=== PATIENT | female | born 1985 | race Hispanic/Latino ===

== ENCOUNTER 2018-02-19 18:36 | Emergency (ER) | payer MEDICAID ==
[2018-02-19 19:24] LABS: APPEARANCE,URINE Clear (CLEAR); BILIRUBIN,URINE Negative (NEGATIVE); COLOR,URINE Dark Yellow (YELLOW); GLUCOSE, URINE (UA) Negative (NEGATIVE); KETONES,URINE Trace mg/dL (NEGATIVE); LEUKOCYTE ESTERASE ,URINE Negative (NEGATIVE); NITRATE,URINE Negative (NEGATIVE); OCCULT BLOOD,URINE Negative (NEGATIVE); PH,URINE 5.5 (5.0-8.0); PROTEIN,URINE Negative (NEGATIVE)
[2018-02-19 19:28] LABS: BASOPHILS % (AUTO) 0.9 % (0.0-5.0); HEMATOCRIT 37.6 % (36-48); LYMPHOCYTES % (AUTO) 25.1 % (21.0-51.0); MEAN CORPUSCULAR HEMOGLOBIN 26.6 pg (27.0-33.0); MEAN CORPUSCULAR HGB CONC 32.8 g/dL (32.0-36.0); MONOCYTES % (AUTO) 10.3 % (3.0-13.0); NEUTROPHILS % (AUTO) 61.7 % (40.0-77.0); PLATELET COUNT (AUTO) 411 K/uL (130-400); RED BLOOD CELL COUNT(AUTO) 4.64 MIL/uL (4.00-5.50); RED CELL DISTRIBUTION WIDTH 14.3 % (11.0-15.5); WHITE BLOOD COUNT (AUTO) 9.2 K/uL (4.8-10.8)
[2018-02-19 19:29] LABS: CREATININE 0.8 mg/dL (0.5-1.5); INR 0.95 (0.85-1.15); PARTIAL THROMBOPLASTIN TIME 23.1 SEC (26.3-35.5); POTASSIUM 3.7 mmol/L (3.5-5.1)
[2018-02-19 19:39] LABS: ALBUMIN 3.4 g/dL (3.5-5.0); BILIRUBIN,TOTAL 0.4 mg/dL (0.2-1.0); TOTAL PROTEIN, SERUM 7.8 g/dL (6.0-8.3)
[2018-02-19] MEDS ORDERED: KETOROLAC TROMETHAMINE 15MG/ML ONE (20:17)
== END 2018-02-19 22:32 | disposition home or self-care (01) ==
LOC: EDH 18:36
DX: R10.32 Left lower quadrant pain (principal); Z98.890 Other specified postprocedural states
CPT/HCPCS: 36415; 80053; 81003; 83690; 84702; 85025; 85610; 85730; 96374; 99284; J1885

== ENCOUNTER 2018-03-16 14:37 | Emergency (ER) | payer MEDICAID ==
[2018-03-16] MEDS ORDERED: IPRATROPIUM/ALBUTEROL SULFATE 3 ML SOLUTION IH ONE (15:20)
[2018-03-16] MEDS ORDERED: METHYLPREDNISOLONE SOD SUCC 125MG/2ML VIAL ONE (15:34)
[2018-03-16 15:41] LABS: RAPID GROUP A STREP NEGATIVE (NEGATIVE)
== END 2018-03-16 16:04 | disposition home or self-care (01) ==
LOC: EDH 14:37
DX: J20.9 Acute bronchitis, unspecified (principal)
CPT/HCPCS: 71046; 81025; 87804 ×2; 87880; 94640; 96372; 99285; J2930

== ENCOUNTER 2019-08-19 18:44 | Emergency (ER) | payer MEDICAID ==
[2019-08-19 19:00] LABS: APPEARANCE,URINE Clear (CLEAR); BILIRUBIN,URINE Negative (NEGATIVE); COLOR,URINE Yellow (YELLOW); GLUCOSE, URINE (UA) Negative (NEGATIVE); KETONES,URINE Negative (NEGATIVE); LEUKOCYTE ESTERASE ,URINE Negative (NEGATIVE); NITRATE,URINE Negative (NEGATIVE); OCCULT BLOOD,URINE Negative (NEGATIVE); PH,URINE 7.5 (5.0-8.0); PROTEIN,URINE Negative (NEGATIVE)
[2019-08-19 19:04] LABS: HCG,QUAL RESULT NEGATIVE (NEGATIVE)
[2019-08-19 19:09] LABS: AMPHET/METH SCREEN,URINE NEGATIVE (NEGATIVE); BARBITURATE SCREEN, URINE NEGATIVE (NEGATIVE); BENZODIAZEPINES SCREEN,URINE NEGATIVE (NEGATIVE); CANNABINOID SCREEN,URINE NEGATIVE (NEGATIVE); COCAINE SCREEN,URINE NEGATIVE (NEGATIVE); OPIATE SCREEN,URINE NEGATIVE (NEGATIVE); PHENCYCLIDINE SCREEN,URINE NEGATIVE (NEGATIVE)
[2019-08-19 20:37] LABS: BASOPHILS % (AUTO) 1.4 % (0.0-5.0); EOSINOPHILS % (AUTO) 1.4 % (0.0-8.0); HEMATOCRIT 32.7 % (36-48); LYMPHOCYTES % (AUTO) 23.8 % (21.0-51.0); MEAN CORPUSCULAR HEMOGLOBIN 19.7 pg (27.0-33.0); MEAN CORPUSCULAR HGB CONC 30.6 g/dL (32.0-36.0); MEAN CORPUSCULAR VOLUME 64.4 fL (79-99); MONOCYTES % (AUTO) 11.3 % (3.0-13.0); NEUTROPHILS % (AUTO) 62.1 % (40.0-77.0); PLATELET COUNT (AUTO) 462 K/uL (130-400); RED BLOOD CELL COUNT(AUTO) 5.07 MIL/uL (4.00-5.50); RED CELL DISTRIBUTION WIDTH 19.2 % (11.0-15.5); WHITE BLOOD COUNT (AUTO) 11.9 K/uL (4.8-10.8)
[2019-08-19 20:44] LABS: INR 0.96 (0.85-1.15); PARTIAL THROMBOPLASTIN TIME 23.6 SEC (26.3-35.5); PROTHROMBIN TIME 10.1 SEC (9.6-11.6)
[2019-08-19 20:48] LABS: CREATININE 0.8 mg/dL (0.5-1.5); POTASSIUM 4.2 mmol/L (3.5-5.1)
[2019-08-19 20:53] LABS: ALBUMIN 3.6 g/dL (3.5-5.0); BILIRUBIN,TOTAL 0.3 mg/dL (0.2-1.0); TOTAL PROTEIN, SERUM 7.9 g/dL (6.0-8.3)
[2019-08-19] MEDS ORDERED: SODIUM CHLORIDE 0.9% 1000ML 1,000 ML IV ONE (20:56)
[2019-08-19] MEDS ORDERED: ACETAMINOPHEN EXTRA STRENGTH 500 MG TABLET ONE (21:04)
== END 2019-08-19 22:50 | disposition home or self-care (01) ==
LOC: EDH 18:44
DX: D64.9 Anemia, unspecified (principal); D47.3 Essential (hemorrhagic) thrombocythemia; R03.0 Elevated blood-pressure reading, without diagnosis of hypertension; R53.1 Weakness; R42 Dizziness and giddiness
CPT/HCPCS: 36415; 80053; 80305; 81003; 81025; 82550; 84443; 84484; 85025; 85610; 85730; 87804 ×2; 93005; 96360; 96361; 99285; J7030

== ENCOUNTER 2019-10-18 12:31 | Emergency (ER) | payer MEDICAID | END 2019-10-18 13:33 | disposition home or self-care (01) | LOC: EDH 12:31 | DX: M54.14 Radiculopathy, thoracic region (principal); M25.511 Pain in right shoulder ==

== ENCOUNTER 2022-01-08 15:10 | Emergency (ER) | payer MEDICAID ==
[~2022-01-08] VITALS: Ht 157.5 cm; Wt 76.2 kg
[2022-01-08 16:03] LABS: APPEARANCE,URINE CLEAR (CLEAR); BILIRUBIN,URINE NEGATIVE (NEGATIVE); COLOR,URINE YELLOW (YELLOW); GLUCOSE, URINE (UA) NEGATIVE (NEGATIVE); KETONES,URINE NEGATIVE (NEGATIVE); LEUKOCYTE ESTERASE ,URINE NEGATIVE (NEGATIVE); NITRATE,URINE POSITIVE (NEGATIVE); OCCULT BLOOD,URINE NEGATIVE (NEGATIVE); PROTEIN,URINE NEGATIVE (NEGATIVE); UROBILINOGEN,URINE 0.2 mg/dL (0.2-1.0)
[2022-01-08 16:04] LABS: BASOPHILS % (AUTO) 0.4 % (0.0-5.0); EOSINOPHILS % (AUTO) 1.7 % (0.0-8.0); LYMPHOCYTES % (AUTO) 17.9 % (21.0-51.0); MEAN CORPUSCULAR HEMOGLOBIN 21.2 pg (27.0-33.0); MEAN CORPUSCULAR HGB CONC 29.1 g/dL (32.0-36.0); MEAN CORPUSCULAR VOLUME 72.8 fL (79-99); MONOCYTES % (AUTO) 8.2 % (3.0-13.0); NEUTROPHILS % (AUTO) 71.3 % (40.0-77.0); PLATELET COUNT (AUTO) 397 K/uL (130-400); RED BLOOD CELL COUNT(AUTO) 4.81 MIL/uL (4.00-5.50); RED CELL DISTRIBUTION WIDTH 18.7 % (11.0-15.5); WHITE BLOOD COUNT (AUTO) 11.1 K/uL (4.8-10.8)
[2022-01-08 16:08] LABS: HCG,QUAL RESULT NEGATIVE (NEGATIVE)
[2022-01-08 16:12] LABS: AMPHET/METH SCREEN,URINE POSITIVE (NEGATIVE); BACTERIA,URINE Moderate /HPF (None Seen); BARBITURATE SCREEN, URINE NEGATIVE (NEGATIVE); BENZODIAZEPINES SCREEN,URINE NEGATIVE (NEGATIVE); CANNABINOID SCREEN,URINE NEGATIVE (NEGATIVE); COCAINE SCREEN,URINE NEGATIVE (NEGATIVE); MUCUS,URINE Moderate LPF (None Seen); OPIATE SCREEN,URINE NEGATIVE (NEGATIVE); PHENCYCLIDINE SCREEN,URINE NEGATIVE (NEGATIVE); RBC,URINE 0-1 /HPF (0-1); WBC,URINE 0-1 /HPF (0-1)
[2022-01-08 16:16] LABS: CREATININE 0.8 mg/dL (0.5-1.5); POTASSIUM 3.6 mmol/L (3.5-5.1)
[2022-01-08 16:26] LABS: ALBUMIN 3.4 g/dL (3.5-5.0); BILIRUBIN,TOTAL 0.3 mg/dL (0.2-1.0); TOTAL PROTEIN, SERUM 7.7 g/dL (6.0-8.3)
[2022-01-08] MEDS ORDERED: 0.9%NACL 1000ML 1,000 ML IV ONE (18:30)
[2022-01-08] MEDS ORDERED: DiphenhydrAMINE HCL 50 MG/ML VIAL IV ONE (18:30)
[2022-01-08] MEDS ORDERED: KETOROLAC 30MG VIAL (30MG/ML) IM ONE (18:30)
[2022-01-08] MEDS ORDERED: PROCHLORPERAZINE EDISYLATE 5 MG/ML 2 ML VIAL IVP ONE (18:45)
[2022-01-08] MEDS ORDERED: PROCHLORPERAZINE 10MG/2ML INJ IVP ONE (18:45)
[2022-01-08 19:24] VITALS: BP 119/65
[2022-01-08] MEDS ORDERED: IBUP-2070 PO (20:01)
[2022-01-08] MEDS ORDERED: PROM25TA7 PO (20:01)
== END 2022-01-08 20:15 | disposition home or self-care (01) ==
LOC: EDH 15:10
DX: G43.109 Migraine with aura, not intractable, without status migrainosus (principal); D50.9 Iron deficiency anemia, unspecified; R11.2 Nausea with vomiting, unspecified; Z20.822 Contact with and (suspected) exposure to COVID-19
CPT/HCPCS: 36415; 70450; 71045; 80053; 80305; 81001; 81025; 82550; 84484; 85025; 87088; 87635; 93005; 96361; 96372; 96374; 96375; 99285; C9803; J0780; J1200; J1885

== ENCOUNTER 2022-12-27 15:56 | Emergency (ER) | payer BC, MEDICAID ==
[~2022-12-27] VITALS: Ht 157.5 cm; Wt 82.6 kg
[~2022-12-27 15:56] MED LIST: IBUP-2070 PO; PROM25TA7 PO
[2022-12-27 16:48] LABS: APPEARANCE,URINE CLEAR (CLEAR); BILIRUBIN,URINE NEGATIVE (NEGATIVE); COLOR,URINE LIGHT-YELLOW (YELLOW); GLUCOSE, URINE (UA) NEGATIVE (NEGATIVE); KETONES,URINE NEGATIVE (NEGATIVE); LEUKOCYTE ESTERASE ,URINE NEGATIVE Leu/uL (NEGATIVE); NITRATE,URINE NEGATIVE (NEGATIVE); OCCULT BLOOD,URINE NEGATIVE (NEGATIVE); PROTEIN,URINE NEGATIVE (NEGATIVE); UROBILINOGEN,URINE 0.2 mg/dL (0.2-1.0)
[2022-12-27 16:49] LABS: HCG,QUALITATIVE URINE NEGATIVE (NEGATIVE)
[2022-12-27 16:51] LABS: BACTERIA,URINE RARE /HPF (None Seen); MUCUS,URINE RARE LPF (None Seen); SQUAMOUS EPITHELIAL CELL,UR FEW /HPF (0-2); WBC,URINE 0-1 /HPF (0-1)
[2022-12-27 16:52] LABS: BASOPHILS % (AUTO) 0.3 % (0.0-5.0); EOSINOPHILS % (AUTO) 1.3 % (0.0-8.0); HEMATOCRIT 43.2 % (36-48); LYMPHOCYTES % (AUTO) 17.1 % (21.0-51.0); MEAN CORPUSCULAR HGB CONC 31.5 g/dL (32.0-36.0); MEAN CORPUSCULAR VOLUME 85.7 fL (79-99); NEUTROPHILS % (AUTO) 74.6 % (40.0-77.0); PLATELET COUNT (AUTO) 395 K/uL (130-400); RED BLOOD CELL COUNT(AUTO) 5.04 MIL/uL (4.00-5.50); RED CELL DISTRIBUTION WIDTH 13.2 % (11.0-15.5); WHITE BLOOD COUNT (AUTO) 15.6 K/uL (4.8-10.8)
[2022-12-27 17:16] LABS: CREATININE 0.8 mg/dL (0.5-1.5); POTASSIUM 3.5 mmol/L (3.5-5.1)
[2022-12-27 17:20] LABS: ALBUMIN 3.8 g/dL (3.5-5.0); TOTAL PROTEIN, SERUM 8.7 g/dL (6.0-8.3)
[2022-12-27] MEDS ORDERED: METO10TA3 PO (18:22)
[2022-12-27 18:30] VITALS: BP 121/71
== END 2022-12-27 18:40 | disposition home or self-care (01) ==
LOC: EDH 15:56
DX: G43.909 Migraine, unspecified, not intractable, without status migrainosus (principal); R11.0 Nausea; Z79.1 Long term (current) use of non-steroidal anti-inflammatories (NSAID)
CPT/HCPCS: 36415; 76856; 80053; 81001; 81025; 85025

== ENCOUNTER 2025-11-16 23:49 | Inpatient (IN) | payer BC, MEDICAID ==
[~2025-11-16] VITALS: Ht 157.5 cm; Wt 60.8 kg
[~2025-11-16 23:49] MED LIST changes: +IBUP-1492 PO; -IBUP-2070 PO; +METO10TA3 PO
--- NOTE | 2025-11-16 23:59 | NUR ---
UA CUP PROVIDED
[2025-11-17] MEDS: LACTATED RINGERS 1000ML 1,000 ML IV ONE (00:20)
[2025-11-17 00:44] LABS: IMMATURE GRANULOCYTE ABSOLUTE 0.07 K/uL (0-1); NUCLEATED RED BLOOD CELLS 0.0 % (0.0-0.19); PLATELET COUNT (AUTO) 347 K/uL (130-400); RED BLOOD CELL COUNT(AUTO) 4.08 MIL/uL (4.00-5.50); RED CELL DISTRIBUTION WIDTH 16.3 % (11.0-15.5); WHITE BLOOD COUNT (AUTO) 14.5 K/uL (4.8-10.8)
--- NOTE | 2025-11-17 00:47 | ERN ---
General Chief Complaint: Multiple Complaints Stated Complaint: LOW BP, HEADACHE, GBW, NOSE BLEEDS Time Seen by MD: 23:53 History of Present Illness Initial Comments 39-year-old female presents for headaches some nosebleed hand swelling or leg swelling. Patient has a history of lupus and Still's disease, rheumatoid arthritis, fibromyalgia. She reports that lately she has been having frequent nosebleeds. She has been swelling in her hands in her feet. She has been having frequent bilateral temporal headaches and occipital headaches that are: Stent. No vision changes. No focal neurologic deficits. No fevers. No cough. No chest pain. Normal urination. Allergies: Coded Allergies: No Known Allergies (Unverified Allergy, Unknown, 01/08/22) furosemide (Unverified Allergy, Unknown, 11/17/25) Home Meds Active Scripts Metoclopramide HCl (Metoclopramide HCl) 10 Mg Tablet, 10 MG PO Q6HPRN PRN for NAUSEA for 10 Days, #40 TAB Prov:DORINA RYAN 12/27/22 Promethazine HCl (Promethazine HCl) 25 Mg Tablet, 25 MG PO TID PRN for nausea, #15 TAB 0 Refills Prov:DONNY PRESCOTT MD 01/08/22 Ibuprofen (Ibuprofen) 600 Mg Tablet, 600 MG PO Q6H PRN for PAIN, #30 TAB 0 Refills Prov:DONNY PRESCOTT MD 01/08/22 Past Medical History Past Medical History: Anemia, Anxiety, Fibromyalgia, Hypotension, Migraines, Other Medical History Other: RA, LUPUS, NASAL MASS Past Surgical History: Other, Surgical History Other: HIATAL HERNIA Female( History) LMP: Nov 13, 2025 ROS Dictation CONSTITUTIONAL: Generalized weakness HEAD/FACE: No signs of trauma. EENT: Frequent nosebleeds RESPIRATORY: No cough, no orthopnea, no SOB, no stridor, no wheezing. CARDIOVASCULAR: No chest pain, no edema, no palpitations, no syncope. GASTROINTESTINAL/ABDOMINAL: Nausea and vomiting GENITOURINARY: No abnormal discharge, no dysuria, no frequent urination, no hematuria. No complaints of pain in the genitals. MUSCULOSKELETAL: Bilateral hand and leg swelling INTEGUMENTARY: No change in color, no change in hair/nails, no dryness, no lesion, no lumps, no rash. NEUROLOGICAL/PSYCH: No anxiety, not depressed, no emotional problem, no headache, no numbness, no pre-existing deficit, no history of seizures, no tremors, no weakness. HEMATOLOGIC/LYMPHATIC: Not anemic, no history of blood clots, no apparent bleeding, no bruising, glands not swollen. All Systems Negative, Except as Noted. Physical Exam Physical Exam Dictation VITAL SIGNS: Reviewed. GENERAL APPEARANCE: Alert, oriented x3, no acute distress. HEAD AND FACE: Non-traumatic. EYES: PERRL, pink conjunctivas, eyelid no trauma, anterior chamber clear. EARS: Pinnas intact and no signs of trauma or erythema. Ear canals clear and no discharge. TMs no erythema. NOSE: No discharge, no bleeding. OROPHARYNX: Mouth normal, teeth no caries, tongue pink. Pharynx clear, no erythema. Tonsils no exudates, no abscesses noted. Mucous membrane moist. NECK: Supple, non-tender, no thyromegaly, no masses, no JVD, no bruits. BREAST: Deferred. CHEST: No tenderness, no crepitus, no paradoxical movement, no retractions. LUNGS: Clear, well-ventilated, symmetric, no rales, no wheezing, no rhonchi, no stridor, good breath sounds bilaterally. HEART: Regular rate, regular rhythm, no murmur, no gallops. VASCULAR: No peripheral edema. ABDOMEN: Soft, positive bowel sounds, nondistended, no guarding, nontender, no rebound, no masses no hepatomegaly, no splenomegaly, no Gray's sign, no hernias. RECTAL: Deferred. GENITAL: Deferred. NEUROLOGICAL: Normal speech, gross motor function intact, gross sensory function intact. MUSCULOSKELETAL: Neck nontender, full range of motion, back nontender, full range of motion. EXTREMITIES: Nontender, full range of motion. SKIN: Color pink, dry, no turgor, no rash, no lacerations, no abrasions, no contusions. LYMPHATICS: Deferred. Heart Results Laboratory and Microbiology Lab and Micro Result Laboratory Tests Test 11/17/25 00:25 11/17/25 00:35 11/17/25 00:48 White Blood Count 14.5 K/uL (4.8-10.8) H Red Blood Count 4.08 MIL/uL (4.00-5.50) Hemoglobin 13.1 g/dL (12.0-16.0) Hematocrit 38.7 % (36-48) Mean Corpuscular Volume 94.9 fL (79-99) Mean Corpuscular Hemoglobin 32.1 pg (27.0-33.0) Mean Corpuscular Hemoglobin Concent 33.9 g/dL (32.0-36.0) Red Cell Distribution Width 16.3 % (11.0-15.5) H Platelet Count 347 K/uL (130-400) Mean Platelet Volume 10.4 fL (7.5-10.5) Immature Granulocyte % (Auto) 0.5 % (0-1) Neutrophils (%) (Auto) 65.8 % (40.0-77.0) Lymphocytes (%) (Auto) 25.6 % (21.0-51.0) Monocytes (%) (Auto) 7.6 % (3.0-13.0) Eosinophils (%) (Auto) 0.2 % (0.0-8.0) Basophils (%) (Auto) 0.3 % (0.0-5.0) Neutrophils # (Auto) 9.6 K/uL (1.8-7.7) H Lymphocytes # (Auto) 3.7 K/uL (1.0-4.8) Monocytes # (Auto) 1.1 K/uL (0.1-1.0) H Eosinophils # (Auto) 0.03 K/uL (0.00-0.70) Basophils # (Auto) 0.04 K/uL (0.00-0.20) Absolute Immature Granulocyte (auto 0.07 K/uL (0-1) Nucleated Red Blood Cells 0.0 % (0.0-0.19) Erythrocyte Sedimentation Rate 2 MM/HR (0-20) Prothrombin Time 10.8 SEC (9.6-11.6) Prothromb Time International Ratio 1.02 (0.85-1.15) Activated Partial Thromboplast Time 22.2 SEC (26.3-35.5) L Sodium Level 141 mmol/L (136-145) Potassium Level 3.2 mmol/L (3.5-5.1) L Chloride Level 106 mmol/L (101-111) Carbon Dioxide Level 27 mmol/L (21-32) Blood Urea Nitrogen 19 mg/dL (7-18) H Creatinine 0.7 mg/dL (0.5-1.0) Glomerular Filtration Rate Calc 113 mL/min (>90) Random Glucose 84 mg/dL (70-105) Lactic Acid Level 1.3 mmol/L (0.8-2.5) Total Calcium 8.5 mg/dL (8.5-10.1) Magnesium Level 2.20 mg/dL (1.80-2.40) Total Creatine Kinase 16 U/L (21-232) #L Troponin I High Sensitivity < 4.0 ng/L (4-50) L C-Reactive Protein, Quantitative < 0.50 mg/L (0.5-3.0) L B-Type Natriuretic Peptide 7 pg/mL (0-100) Human Chorionic Gonadotropin, Quant 0 mIU/mL (0-5) Influenza Type A Antigen Negative For Type A Influenza Type B Antigen Negative For Type B Urine Color YELLOW (YELLOW) Urine Appearance CLEAR (CLEAR) Urine pH 6.5 (5.0-8.0) Urine Specific [place] 1.028 (1.001-1.031) Urine Protein NEGATIVE mg/dL (NEGATIVE) Urine Glucose (UA) NEGATIVE mg/dL (NEGATIVE) Urine Ketones NEGATIVE mg/dL (NEGATIVE) Urine Occult Blood NEGATIVE (NEGATIVE) Urine Nitrate NEGATIVE (NEGATIVE) Urine Bilirubin NEGATIVE mg/dL (NEGATIVE) Urine Urobilinogen 0.2 mg/dL (0.2-1.0) Urine Leukocyte Esterase NEGATIVE Jael/uL MDM CC: Headache, dizziness, transient hypotension noted at home Historian: Patient Comorbidities: Anemia, anxiety, migraines, rheumatoid arthritis, fibromyalgia, Still's disease, lupus Limitations by social determinants of health: None Differential diagnosis: Shock, infection, dehydration, migraine headache, brain abnormality, kidney dysfunction, electrolyte abnormality, other Vital signs: 99/64 blood pressure, otherwise stable. Patient reports blood pressure readings in the 60s at home. Labs show [id number] K no shift or bands. Coags stable. Chemistry shows mildly low potassium 3.2, corrected elevated BUN to creatinine ratio consistent with dehydration. Lactic acid stable. CK normal troponin normal. CRP normal. HCG is negative. BNP normal. Urinalysis normal. Flu SARS negative. CT head is unremarkable. Patient received IV Dilaudid with frequent re-evaluations for pain. On re- evaluation she is still in considerable minor pain or headache. Given the headache cocktail including Compazine Benadryl Toradol dexamethasone. Patient has a multiple medical comorbidities, she has clinical dehydration and hypokalemia. There has been she had transient hypotension. She is having intractable her headache pain. At this time there was no obvious source of infection, we would due to leukocytosis and possible low blood pressure, will admit for observation. ED Course Orders Procedure Category Date Status Time Lactated Ringers PHA 11/17/25 Complete 1000ml (Lactated 00:00 Cardiac Panel LAB 11/17/25 Complete 00:00 Cbc With Differential LAB 11/17/25 Complete 00:00 Basic Metabolic Panel LAB 11/17/25 Complete 00:00 Hcg,Quantitative LAB 11/17/25 Complete 00:00 Magnesium LAB 11/17/25 Complete 00:00 Prothrombin Time With LAB 11/17/25 Complete INR 00:00 Partial LAB 11/17/25 Complete Thromboplastin Time 00:00 Urinalysis Profile LAB 11/17/25 Complete 00:00 Blood Cult ALAN 11/17/25 In Process 00:00 Lactic Acid LAB 11/17/25 Complete 00:00 Crp Quantitative LAB 11/17/25 Complete 00:00 Erythrocyte Sed Rate LAB 11/17/25 Complete 00:00 Ct Head/Brain W/O CT 11/17/25 Resulted Contrast 00:00 B-Type Natriuretic LAB 11/17/25 Complete Peptide 00:00 Influenza Type A & B, LAB 11/17/25 Complete Rapid 00:05 Hydromorphone 1 Mg PHA 11/17/25 Complete Inj (Dilaudid 1mg Inj 01:00 Prochlorperazine PHA 11/17/25 In Process 10mg/2ml Inj 04:00 Diphenhydramine Hcl PHA 11/17/25 In Process (Benadryl Inj) 04:00 Ketorolac PHA 11/17/25 In Process Tromethamine 15mg/Ml 04:00 0.9%Nacl 1000ml (Ns PHA 11/17/25 In Process 1000ml) 04:00 Dexamethasone 4mg/Ml PHA 11/17/25 In Process 1ml Vial (Dexametha 04:00 Initiate Npo KETAN 11/17/25 In Process Hypokalemia Evelia 03:48 Potassium Chloride PHA 11/17/25 In Process 20meq/100ml ([place] 04:00 Notify Physician If CPOE 11/17/25 Transmitted There Is 03:48 Notify Md On The Next CPOE 11/17/25 Transmitted 03:48 Notify Md On The CPOE 11/17/25 Transmitted Next(Cont.) 03:48 Current Medications Medications (Trade) Dose Ordered Sig/Oliver Route PRN Reason Start Time Stop Time Status Last Admin Dose Admin Dexamethasone Sodium Phosphate (dexaMETHasone 4MG/ML 1ML VIAL) 4 mg ONCE ONCE IV 11/17/25 04:00 11/17/25 04:01 Diphenhydramine HCl (BENAdryl INJ) 50 mg ONCE ONCE IV 11/17/25 04:00 11/17/25 04:01 Hydromorphone HCl (DiLAUDid 1MG INJ) 0.5 mg ONCE ONCE IVP 11/17/25 01:00 11/17/25 01:01 DC 11/17/25 00:45 Ketorolac Tromethamine (toRADol) 15 mg ONCE ONCE IV 11/17/25 04:00 11/17/25 04:01 Lactated Ringer's 1,000 ml @ 0 mls/hr ONCE ONCE IV 11/17/25 00:00 11/17/25 00:07 DC 11/17/25 00:20 Potassium Chloride 100 ml @ 50 mls/hr AD PRN IV POTASSIUM PROTOCOL 11/17/25 04:00 12/17/25 03:59 Prochlorperazine Edisylate (Compazine 10mg/ 2ml Inj) 10 mg ONCE ONCE IV 11/17/25 04:00 11/17/25 04:01 Sodium Chloride 1,000 ml @ 150 mls/hr Q6H40M IV 11/17/25 04:00 12/17/25 03:59 Vital Signs Date Time Temp Pulse Resp B/P (MAP) Pulse Ox O2 Delivery O2 Flow Rate FiO2 11/17/25 01:11 97.9 78 18 99/64 99 Room Air* 0 21 11/16/25 23:51 97.9 93 20 117/68 98 Room Air DX & DISP Disposition: Discharge Departure Impression: Primary Impression: Intractable pain Additional Impressions: Headache, Transient hypotension, Hypokalemia Condition: Stable Referrals: SELF,REFERRAL (PCP) MICK PEACOCK DO Nov 17, 2025 00:47
[2025-11-17 01:01] LABS: ERYTHROCYTE SEDIMENTATION RATE 2 MM/HR (0-20)
[2025-11-17 01:04] LABS: CREATININE 0.7 mg/dL (0.5-1.0); GLOMERULAR FILTR. RATE CALC 113 mL/min (>90); GLUCOSE,RANDOM 84 mg/dL (70-105); INR 1.02 (0.85-1.15); SODIUM SERUM 141 mmol/L (136-145); UREA NITROGEN, BLOOD 19 mg/dL (7-18)
[2025-11-17 01:14] LABS: CREATINE KINASE, TOTAL 16 U/L (21-232); HCG,QUANTITATIVE 0 mIU/mL (0-5)
[2025-11-17 01:24] LABS: INFLUENZA TYPE A Negative For Type A (NEGATIVE); INFLUENZA TYPE B Negative For Type B (NEGATIVE)
[2025-11-17 01:26] LABS: ADD UA MICROSCOPIC NO; APPEARANCE,URINE CLEAR (CLEAR); GLUCOSE, URINE (UA) NEGATIVE (NEGATIVE); LEUKOCYTE ESTERASE ,URINE NEGATIVE Leu/uL (NEGATIVE); NITRATE,URINE NEGATIVE (NEGATIVE); OCCULT BLOOD,URINE NEGATIVE (NEGATIVE)
--- NOTE | 2025-11-17 03:14 | HMCIMG ---
EXAM: CT Head Without IV contrast. CLINICAL HISTORY: Headche TECHNIQUE: Axial computed tomography images of the head/brain without intravenous contrast. Sagittal and coronal reconstructions are available and reviewed. A CT scan is done according to ALARA (As Low As Reasonably Achievable). COMPARISON: 01/08/2022 CT head without. FINDINGS: BRAIN: No evidence of acute hemorrhage. No mass lesion. No CT evidence for acute territorial infarct. No midline shift or extra-axial collections. VENTRICLES: No hydrocephalus. ORBITS: The orbits are unremarkable. SINUSES AND MASTOIDS: Mild sclerosis of bilateral mastoid air cells could be a sequel of chronic mastoiditis. The paranasal sinuses are clear. BONES: No fracture. SOFT TISSUES: Unremarkable. IMPRESSION: No acute intracranial abnormality. Mild sclerosis of bilateral mastoid air cells could be a sequel of chronic mastoiditis. Stable. /[place]
[2025-11-17] MEDS: PROCHLORPERAZINE 10MG/2ML INJ IV ONE (04:02)
[2025-11-17] MEDS: 0.9%NACL 1000ML 1,000 ML IV SCH ×2 (04:02→04:34)
[2025-11-17 04:19] LABS: AMPHET/METH SCREEN,URINE NEGATIVE (NEGATIVE); BARBITURATE SCREEN, URINE NEGATIVE (NEGATIVE); CANNABINOID SCREEN,URINE NEGATIVE (NEGATIVE); COCAINE SCREEN,URINE NEGATIVE (NEGATIVE)
[2025-11-17] MEDS ORDERED: PROCHLORPERAZINE 10MG/2ML INJ IV PRN (04:30)
[2025-11-17 07:20] VITALS: O2SAT 98
--- NOTE | 2025-11-17 10:11 | NUR ---
DCP:HOME Pt reports living at home with her and children. Pt states that she uses a walker to ambulate. Pt denies any home health or provider services. Pt states that she is able to complete ADLs independently. PCP is Dr Rikki Palmer. At [place] pt will want to go home and family can assist with transportation.
[2025-11-17] MEDS: ENOXAPARIN SODIUM 40 MG/0.4 ML SYRINGE SQ SCH (10:41)
--- NOTE | 2025-11-17 11:00 | NUR ---
HOME MEDS PT PENDING TO BRING HOME MEDS
--- NOTE | 2025-11-17 11:11 | HP ---
ADMISSION HISTORY AND PHYSICAL ADMITTING DIAGNOSIS: Nosebleed. HISTORY OF PRESENT ILLNESS: A 39-year-old patient well known to me with Still's disease, fibromyalgia, and has got a nasal polyp. She has been seen by ENT before. She has had frequent nosebleeds and came in here with a pronounced nosebleed. She was seen and examined by the ER doctor and admitted for observation. She has had no fever, chills, or other complaints. PAST MEDICAL HISTORY: anemia, anxiety, fibromyalgia, Still's disease, migraines, nasal polyp surgery. PAST SURGICAL HISTORY: She has had previous nasal exam, , hiatal hernia surgery. MEDICATIONS: Include Reglan, promethazine, and ibuprofen. ALLERGIES: No known allergies. FAMILY HISTORY: Family history is negative for lupus or blood dyscrasia. SOCIAL HISTORY: . . She has children. REVIEW OF SYSTEMS: CONSTITUTIONAL: Negative for fever or sweats. HEENT: Nosebleed. CARDIOVASCULAR: Negative for chest pain, palpitations, PND, or cough. GASTROINTESTINAL: Negative for nausea or vomiting. GENITOURINARY: Negative for hematuria or dysuria. PHYSICAL EXAMINATION: GENERAL: Physical exam shows a young woman. VITAL SIGNS: Blood pressure 117/68, pulse 93, respiratory rate 20. HEENT: Shows dried blood in the right nostril. No active bleeding. NECK: Supple. CHEST: Clear and soft. EXTREMITIES: No edema. NEUROLOGIC: Alert and oriented. LABORATORY DATA: Lab reviewed. CBC: 14, hemoglobin 13.3, platelets 47,000. IMPRESSION: * Recurrent nosebleed undoubtedly from this nasal polyp/mass for which she sees ENT. * Leukocytosis, chronic. * Still's disease. * Fibromyalgia, and other problems as listed. PLAN: * Admit short-term observation. * CBC, chem profile, IV fluids. * There is no ENT here, so we will have to just follow her serially. * If she rebleeds, she will need to be transferred to a hospital that has ENT. * We will continue pain management. * Further recommendations to follow. TID: [id number] RECEIPT: [id number]
[2025-11-17 12:42] VITALS: BP 98/69; PULSE 81; RESP 20; TEMP 98
--- NOTE | 2025-11-17 14:20 | NUR ---
PAIN PT COMPLAINING PAIN [address] SANTIAGO NOTIFIED PT ONLY HAVE TYLENOL AVAILABLE. NO FURTHER ORDERS GIVEN AT THIS TIME
--- NOTE | 2025-11-17 15:53 | NUR ---
DISCHARGE PT PIV DC'D PT VERBALIZED UNDERSTANDING OF DISCHARGE INSTRUCTIONS PT GATHERED AND TOOK ALL BELONGINGS PT HAD NO FURTHER QUESTIONS AT TIME OF DISCHARGE
== END 2025-11-17 15:58 | disposition home or self-care (01) | DRG 156 ==
LOC: EDH 23:49 → EDHIP 11-17 04:06
PROVIDERS: ADMIT Internal Medicine Hematology & Oncology; ATTEND Internal Medicine Hematology & Oncology
DX: J33.9 Nasal polyp, unspecified (principal); M08.20 Juvenile rheumatoid arthritis with systemic onset, unspecified site; D64.9 Anemia, unspecified; R04.0 Epistaxis; E87.6 Hypokalemia; M79.7 Fibromyalgia; F41.9 Anxiety disorder, unspecified; D72.829 Elevated white blood cell count, unspecified
CPT/HCPCS: 36415; 70450; 80048; 80305; 81003; 82550; 83605; 83735; 83880; 84484; 84702; 85025; 85610; 85651; 85730; 86140; 87040; 87804; 96365; 96374; 99285; G0378; J0780; J1100; J1171; J1200; J1650; J1885; J3480